=== PATIENT | male | born 1955 | race Caucasian/White ===

== ENCOUNTER → 2024-01-24 07:41 | Outpatient (REF) | payer OTHER, SELFPAY | LOC: MRI 3T 07:41 | PROVIDERS: ATTENDING PHYSICIAN Radiology Radiation Oncology; FAMILY PHYSICIAN Family Medicine; OTHER PHYSICIAN Radiology Diagnostic Radiology; REFERRING PHYSICIAN Specialist | DX: C61 Malignant neoplasm of prostate (principal) | CPT/HCPCS: 70030; 72197 ==

== ENCOUNTER → 2024-04-01 06:22 | Day surgery (SDC) | payer OTHER, SELFPAY | LOC: GI 06:22 | PROVIDERS: ATTENDING PHYSICIAN Internal Medicine | DX: Z12.11 Encounter for screening for malignant neoplasm of colon (principal); K57.30 Diverticulosis of large intestine without perforation or abscess without bleeding; K64.8 Other hemorrhoids; K63.5 Polyp of colon; D12.3 Benign neoplasm of transverse colon | CPT/HCPCS: 45385; 45380; 88305 ==